=== PATIENT | male | born 1940 | race Caucasian/White ===

== ENCOUNTER 2020-06-05 08:11 | Emergency (ER) | payer MEDICARE, OTHER ==
[~2020-06-05] VITALS: Ht 172.7 cm; Wt 66.7 kg
--- NOTE | 2020-06-05 08:14 | NUR ---
PT [id number], PER REPORT PATIENT WAS FOUND OUTSIDE OF HIS HOME ONLY WEARING ONLY SHIRT AND DIAPER. LVES WITH CAREGIVER PER REPORT. PT IS CONFUSED, GERMAN SPEAKER UPON INITIAL ASSESSMENT. GOWNED AND PLACED ON MONITOR. PROVIDED W/ WARM BLANKET. STABLE VITALS. AWAITING MD HUNTER.
--- NOTE | 2020-06-05 08:25 | NUR ---
DR ROSAS AT BEDSIDE FOR EVAL.
--- NOTE | 2020-06-05 08:37 | NUR ---
CANE BURNER AT BEDSIDE FOR BLOOD DRAW.
[2020-06-05 08:44] LABS: BASOPHILS # (AUTO) 0.1 /CMM (0.0-0.2); BASOPHILS % (AUTO) 1.1 % (0.0-2.0); EOSINOPHILS % (AUTO) 1.5 % (0.0-6.0); HEMATOCRIT 37 % (39-51); HEMOGLOBIN 12.4 g/dL (13.5-17.5); LYMPHOCYTES % (AUTO) 27.5 % (20.0-44.0); MEAN CORPUSCULAR HGB CONC 33 g/dl (31.0-36.0); MEAN CORPUSCULAR VOLUME 85 fL (80-96); MONOCYTES # (AUTO) 0.6 /CMM (0.1-1.30); MONOCYTES % (AUTO) 5.5 % (2.0-12.0); NEUTROPHILS % (AUTO) 64.4 % (43.0-81.0); PLATELET COUNT (AUTO) 254 /CMM (150-450); RED BLOOD CELL COUNT(AUTO) 4.34 MIL/uL (4.5-6.0); WHITE BLOOD COUNT (AUTO) 10.9 K/uL (4.3-11.0)
[2020-06-05 08:52] LABS: CALCIUM, SERUM 9.4 mg/dL (8.5-10.1); CARBON DIOXIDE 31 mmol/L (21-32); CHLORIDE 106 mmol/L (98-107); CREATININE 1.2 mg/dL (0.6-1.3); GLUCOSE 224 mg/dL (74-106); POTASSIUM 3.9 mmol/L (3.5-5.1); SODIUM SERUM 145 mmol/L (136-145); UREA NITROGEN, BLOOD 18 mg/dL (7-18)
[2020-06-05 08:58] LABS: ALANINE AMINOTRANSFERASE 24 U/L (12-78); ALBUMIN 3.8 g/dL (3.4-5.0); ALKALINE PHOSPHATASE 144 U/L (46-116); ASPARTATE AMINOTRANSFERASE 15 U/L (15-37); BILIRUBIN,DIRECT 0.1 mg/dL (0.0-0.2); BILIRUBIN,TOTAL 0.4 mg/dL (0.2-1.0); TOTAL PROTEIN, SERUM 7.4 g/dL (6.4-8.2)
--- NOTE | 2020-06-05 09:50 | NUR ---
SW CALLED WILL COME DOWN TO MAKE SURE PT IS OK TO GO HOME.
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
--- NOTE | 2020-06-05 11:12 | NUR ---
PT IS MEDICALLY CLEARED. SON AT BEDSIDE TO TAKE PATIENT HOME. D/C IN STABLE CONDITION.
[2020-06-05 11:13] VITALS: BP 148/74
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
== END 2020-06-05 11:13 | disposition home or self-care (01) ==
LOC: ER 08:15 → EDBD 08:15 → ER 11:13
DX: R41.82 Altered mental status, unspecified (principal); R94.31 Abnormal electrocardiogram [ECG] [EKG]; F03.90 Unspecified dementia, unspecified severity, without behavioral disturbance, psychotic disturbance, mood disturbance, and anxiety
CPT/HCPCS: 36415; 71045-TC; 80048-TC; 80076-TC; 84484-TC; 85025-TC